=== PATIENT | female | born 1995 | race Two or more races ===

== ENCOUNTER 2024-09-09 12:52 | Emergency (ER) | payer MEDICAID, SELFPAY ==
[2024-09-09 12:53] VITALS: BMI 32.5
[2024-09-09 14:04] VITALS: BP 106/76; PULSE 105; RESP 18; TEMP 37; O2SAT 98
--- NOTE | 2024-09-09 14:22 | PD.EDRME ---
Rapid Medical Screening Exam E Arrival date/time: 09/09/24 12:52 This is a 29-year-old female that comes in with complaints of lower abdominal pain that radiates to her back. Patient states pain started today. Patient reports yesterday she started having some nausea and diarrhea. Patient denies fever and vomiting. Patient's last menstrual period was 05 September. Patient also with complaints of OLIGURA and urgency. She reports history of asthma I have greeted and performed a focused initial assessment of this patient. Initial appropriate labs ordered at this time. A comprehensive ED assessment and evaluation of the patient and analysis of all test and completion of medical decision making process will be conducted by additional ED provider. Chief Complaint: Abdominal Pain Time Seen by Provider: 09/09/24 14:14 Vital signs: Vital Signs Temperature 98.6 F 09/09/24 14:04 Pulse Rate 105 H 09/09/24 14:04 Respiratory Rate 18 09/09/24 14:04 Blood Pressure 106/76 09/09/24 14:04 Pulse Oximetry (%) 98 09/09/24 14:04 Oxygen Delivery Method Room Air 09/09/24 14:04
[2024-09-09 15:00] LABS: Basophils # (Auto) 0.1 Thou/mm3 (0.0-0.2); Basophils % (Auto) 1 % (0-2.5); Eosinophils # (Auto) 0.1 Thou/mm3 (0.0-0.5); Eosinophils % (Auto) 1 % (0-10); Hematocrit 39.8 % (36.0-46.0); Hemoglobin 13.9 g/dL (12.0-16.0); Immature Granulocytes % (Auto) 0 % (0-0); Immature Granulocytes Auto 0.01 Thou/mm3 (0.00-0.00); Lymphocytes # (Auto) 2.9 Thou/mm3 (1.0-4.8); Lymphocytes % (Auto) 39 % (10-50); Mean Corpuscular HGB Conc 34.9 g/dl (31.0-37.0); Mean Corpuscular Hemoglobin 29.1 pg (25.0-35.0); Mean Corpuscular Volume 83 fL (80-100); Monocytes # (Auto) 0.5 Thou/mm3 (0.0-0.8); Monocytes % (Auto) 6 % (0-12); Neutrophils # (Auto) 3.9 Thou/mm3 (1.8-7.7); Neutrophils % (Auto) 53 % (37-80); Nucleated Red Blood Cell % 0 /100 WBC (0); Platelet Count 345 Thou/mm3 (140-440); RDW Standard Deviation 38.5 fL (36.4-46.3); Red Blood Count 4.77 Miln/mm3 (4.00-5.20); White Blood Count 7.4 Thou/mm3 (3.6-11.0)
[2024-09-09 15:16] LABS: Alanine Aminotransferase 20 U/L (10-49); Albumin, Serum 4.6 gm/dL (3.5-5.0); Albumin/Globulin Ratio 1.6 (1.2-2.2); Alkaline Phosphatase 40 U/L (46-116); Anion Gap 7 (7-16); Aspartate Amino Transferase 18 U/L (0-34); BUN/Creatinine Ratio 13 Ratio (12-20); Bilirubin,Total 0.4 mg/dL (0.3-1.2); Blood Urea Nitrogen 9 mg/dL (9-23); Calcium 9.6 mg/dL (8.3-10.6); Calcium (Corrected) 9.6 mg/dL (8.5-10.1); Carbon Dioxide 27.6 mMol/L (20.0-31.0); Chloride 104 mMol/L (98-107); Creatinine (Component) 0.7 mg/dL (0.6-1.3); Estimated Creatinine Clearance 123.7 mL/min (>60); Globulin 2.9 gm/dL (2.3-3.5); Glucose 90 mg/dL (74-106); Lipase 38 U/L (12-53); Osmolality,Calculated 276 (275-295); Potassium 3.9 mMol/L (3.4-5.1); Sodium 139 mMol/L (136-145); Total Protein 7.5 gm/dL (5.7-8.2); eGFR > 60 See Note
[2024-09-09 15:17] LABS: HCG,Qualitative Serum Negative
[2024-09-09 15:28] LABS: Collection Type, Urine Voided
[2024-09-09 16:10] LABS: Bilirubin,Urine Negative (Negative); Blood,Urine Negative (Negative); Clarity,Urine Clear (Clear/Hazy); Color,Urine Lt-Yellow (Lt Yel-Yel); Culture Indicated,Urine Not Indicated; Glucose, Urine Negative (Negative); Ketones,Urine Negative (Negative); Leukocyte Esterase,Urine Negative (Negative); Nitrite,Urine Negative (Negative); PH,Urine 5.5 (5.0-7.0); Protein,Urine Negative (Neg - Trace); RBC,Urine 3 /hpf (0-3); Specific Gravity,Urine 1.025 (1.001-1.035); Squamous Epithelial Cell,Urine 3 /hpf (0-5); Urobilinogen,Urine Negative mg/dL (0.0-1.0); WBC,Urine 2 /hpf (0-5)
[2024-09-09 17:34] VITALS: BP 117/68; PULSE 99; RESP 16; TEMP 36.6; O2SAT 99
--- NOTE | 2024-09-09 18:16 | EDNOTE_ITS ---
ED Abdominal Pain RME/HPI General Chief Complaint: Abdominal Pain Stated complaint: abdominal pain, vaginal bleed Time seen by provider: 09/09/24 14:14 Arrival date/time: 09/09/24 12:52 29-year-old female presents complaining of left flank pain that radiates to her abdomen which has been ongoing for 1 week. Patient reports earlier today she felt the pain and then reported painful urination that then subsided after voiding. Patient denies any fever, chills, nausea vomiting, diarrhea, or any other associated symptom. Source: patient Mode of arrival: ambulatory Limitations: no limitations RME / HPI RME / HPI narrative: 09/09/24 12:52 This is a 29-year-old female that comes in with complaints of lower abdominal pain that radiates to her back. Patient states pain started today. Patient reports yesterday she started having some nausea and diarrhea. Patient denies fever and vomiting. Patient's last menstrual period was 05 September. Patient also with complaints of OLIGURA and urgency. She reports history of asthma I have greeted and performed a focused initial assessment of this patient. Initial appropriate labs ordered at this time. A comprehensive ED assessment and evaluation of the patient and analysis of all test and completion of medical decision making process will be conducted by additional ED provider. Related Data Previous Rx's ?Medication ?Instructions ?Recorded ibuprofen 600 mg tablet 600 mg PO Q8H PRN pain #20 tabs 09/09/24 Allergies Allergy/AdvReac Type Severity Reaction Status Date / Time No Known Allergies Allergy Verified 03/04/24 23:04 Review of Systems Review of Systems Systems Reviewed: All systems reviewed, normal except as documented Constitutional Constitutional: Reports system reviewed and no additional complaints, except as documented, Denies body ache(s), Denies chills and Denies fever(s) Eyes Eyes: Reports system reviewed and no additional complaints, except as documented and Denies change in vision ENT Ears, Nose, Mouth, and Throat: Reports system reviewed and no additional c omplaints, except as documented, Denies disequilibrium, Denies dizziness, Denies sore throat and Denies vertigo Cardiovascular Cardiovascular: Reports system reviewed and no additional complaints, except as documented, Denies chest pain and Denies dyspnea Respiratory Respiratory: Reports system reviewed and no additional complaints, except as documented, Denies chest congestion, Denies cough and Denies dyspnea Gastrointestinal Gastrointestinal: Reports system reviewed and no additional complaints, except as documented, Reports abdominal pain, Denies nausea and Denies vomiting Genitourinary Genitourinary: Reports other (Painful urination) Musculoskeletal Musculoskeletal: Reports system reviewed and no additional complaints, except as documented, Denies abnormal gait, Denies arthralgias and Reports back pain Integumentary/Breasts Skin/Breast: Reports system reviewed and no additional complaints, except as documented, Denies erythema, Denies rash and Denies wounds Neurologic Neurologic: Reports system reviewed and no additional complaints, except as documented, Denies abnormal gait, Denies disequilibrium, Denies dizziness and Denies vertigo Past Medical History Social History SMOKING STATUS: Never smoker ED Exam General Limitations: Present no limitations General appearance: Present alert and in no apparent distress Head Head exam: Present atraumatic Eye Eye exam: Present normal appearance, PERRL and EOMI ENT ENT exam: Present normal exam, normal oropharynx and mucous membranes moist Neck Neck exam: Present normal inspection, full ROM and trachea midline Chest Chest inspection: Present normal inspection and symmetric chest wall rise Respiratory Respiratory exam: Present normal lung sounds bilaterally Cardiovascular Cardiovascular exam: Present regular rate, normal rhythm and normal heart sounds Abdominal Exam Abdominal exam: Present soft and normal bowel sounds Extremities Exam Extremities exam: Present normal inspection and full ROM Back Exam Back exam: Present normal inspection and full ROM Neurological Exam Neurological exam: Present alert, oriented X3 and CN II-XII intact Psychiatric Psychiatric exam: Present normal affect and normal mood Skin Skin exam: Present warm, dry, intact and normal color Course Quality Measures none Orders Category Date Time Status CBC Stat Lab 09/09/24 14:45 Completed Comprehensive Metabolic Panel Stat Lab 09/09/24 14:45 Completed HCG,Qualitative Serum Stat Lab 09/09/24 14:45 Completed Lipase Stat Lab 09/09/24 14:45 Completed Urinalysis, C/S if Indicated Stat Lab 09/09/24 15:14 Completed Vital Signs Vital signs: Vital Signs Temperature 98.6 F 09/09/24 14:04 Pulse Rate 105 H 09/09/24 14:04 Respiratory Rate 18 09/09/24 14:04 Blood Pressure 106/76 09/09/24 14:04 Pulse Oximetry (%) 98 09/09/24 14:04 Oxygen Delivery Method Room Air 09/09/24 14:04 98% room air within normal limits Abdominal Pain MDM MDM Narrative MDM Narrative:: 29-year-old female presents complaining of left flank pain that radiates to her abdomen which has been ongoing for 1 week. Patient reports earlier today she felt the pain and then reported painful urination that then subsided after voiding. Patient denies any fever, chills, nausea vomiting, diarrhea, or any other associated symptom. At time of exam patient reported complete resolution of symptoms and reports no longer having any pain. CBC was unremarkable for any leukocytosis or anemia. CMP was unremarkable for any gross electrolyte normalities or elevated LFTs. Urinalysis unremarkable. Patient hCG negative. Patient abdomen soft and nontender. Patient appears nontoxic and is hemodynamically stable. Patient discharged instructed to follow-up with primary care provider return to emergency department for any worsening symptoms or as needed. Patient data External records reviewed:: [facility] previous records Clinical information provided by:: patient Social determinants that could affect healthcare access:: none Patient has the following chronic illnesses:: None How is presenting disease/condition affected by chronic disease/condition?: no chronic disease Evaluation data The following diagnostics were reviewed and interpreted by me:: lab results Lab and/or radiology exams considered but not ordered:: Ordered Interpretation Summary: Interpreted by me Medications / Prescriptions Medications or Prescriptions considered but not ordered:: N/A Medication administrations:: N/A Consultations Consultation(s) initiated? (list below): No Diagnosis Differential diagnosis abdominal pain: abdominal pain, acute appendicitis, calculus of kidney, constipation, diverticulitis, endometriosis, gastroenteritis, pancreatitis and small bowel obstruction Most likely diagnosis given after review of the tests above:: Abdominal pain Admission Indicated Admission indicated?: not indicated Admission Request Was there a request for admission?: No Disposition Plan Disposition Plan: Discharge Discharge Attestation Discharge Attestation: The patient and all family members were given an opportunity to ask questions and understood the discharge instructions. Discharge instructions specifically effects, indications for sooner follow up or return to the emergency department, and the expected course of current diagnosis. Patient condition: Stable Discharge Plan Plan Patient Disposition: HOME (Self Care) Disposition Comment: Stable Prescriptions/Referrals Prescriptions/Med Rec: New ibuprofen 600 mg tablet 600 mg PO Q8H PRN (Reason: pain) Qty: 20 0RF Referrals: No Primary/Family,Physician [Primary Care Provider] - In 1 week Problem List Clinical Impression: Abdominal pain Patient/Caregiver Discharge Instructions Discharge Activity: activity as tolerated Education Materials: Abdominal Pain Additional Instructions: Drink plenty of fluids and stay hydrated. Take Tylenol or ibuprofen as needed for pain. Follow-up with primary care provider in 2 to 3 days. Return to emergency department for any worsening symptoms or as needed Print Language: Argentine Stand Alone Forms: Sherrie Award Info., Patient Portal Info Letter PA/CHECK PROCESSING CLERK Supervising Physician PA/CHECK PROCESSING CLERK Supervising Physician: Dr. Adames
== END 2024-09-09 18:31 | disposition home or self-care (01) ==
PROVIDERS: Nurse Practitioner Family; Emergency Provider Emergency Medicine
DX: R10.32 Left lower quadrant pain (principal)
CPT/HCPCS: 36415; 80053; 81001; 83690; 84703; 85025; 99283